=== PATIENT | female | born 1945 | race Two or more races ===

== ENCOUNTER 2017-12-20 11:33 | Emergency (ER) | payer OTHER ==
[~2017-12-20] VITALS: Ht 152.4 cm; Wt 88.9 kg
[2017-12-20] MEDS ORDERED: LIPITOR20 MG (12:50)
[2017-12-20] MEDS ORDERED: ATORVASTATIN CA20 MG (12:50)
[2017-12-20] MEDS ORDERED: DOXYCYCLINE HY100 MG (12:50)
[2017-12-20] MEDS ORDERED: AMLOD-VALSA-HC1 EAC3 (12:51)
== END 2017-12-20 14:50 | disposition home or self-care (01) ==
LOC: ER 11:33
DX: R42 Dizziness and giddiness (principal)

== ENCOUNTER 2018-12-16 08:34 | Outpatient (CLI) | payer OTHER ==
[~2018-12-16 08:34] MED LIST: AMLOD-VALSA-HC1 EAC3; ATORVASTATIN CA20 MG; DOXYCYCLINE HY100 MG; LIPITOR20 MG
== END 2018-12-16 08:44 | disposition home or self-care (01) ==
LOC: SONOGRAMA 08:34
DX: E04.2 Nontoxic multinodular goiter (principal)

== ENCOUNTER 2019-12-22 15:31 | Emergency (ER) | payer OTHER ==
[~2019-12-22] VITALS: Ht 152.4 cm; Wt 90.7 kg
== END 2019-12-22 21:03 | disposition home or self-care (01) ==
LOC: ER 15:31
DX: R10.13 Epigastric pain (principal); N39.0 Urinary tract infection, site not specified; B96.29 Other Escherichia coli [E. coli] as the cause of diseases classified elsewhere; R31.29 Other microscopic hematuria; T50.995A Adverse effect of other drugs, medicaments and biological substances, initial encounter; Y92.89 Other specified places as the place of occurrence of the external cause

== ENCOUNTER 2021-04-22 06:39 | Outpatient (CLI) | payer OTHER | END 2021-04-22 09:00 | disposition home or self-care (01) | LOC: TOM 06:39 → MRI 06:39 | PROVIDERS: ATTEND Physical Medicine & Rehabilitation | DX: M43.17 Spondylolisthesis, lumbosacral region (principal); M51.37 Other intervertebral disc degeneration, lumbosacral region; M54.51 Vertebrogenic low back pain | CPT/HCPCS: 72148 ==

== ENCOUNTER 2021-06-22 10:55 | Emergency (ER) | payer OTHER ==
[~2021-06-22] VITALS: Ht 152.4 cm; Wt 95.3 kg
[2021-06-22] MEDS ORDERED: ADMELOG100 UNIT/1 (11:11)
[2021-06-22] MEDS ORDERED: SEMGLEE100 UNIT/1 (11:11)
[2021-06-22] MEDS ORDERED: PANTOPRAZOLE SO40 MG PO (11:12)
[2021-06-22] MEDS ORDERED: MAXIMUM D3325 MCG PO (11:12)
[2021-06-22] MEDS ORDERED: HYDROCHLOROTHIA25 MG PO (11:12)
[2021-06-22] MEDS ORDERED: AMLODIPINE-VAL1 EACH PO (11:12)
[2021-06-22] MEDS ORDERED: DOXAZOSIN MESYLA4 MG PO (11:12)
[2021-06-22] MEDS ORDERED: MONDOXYNE NL100 MG PO (13:42)
== END 2021-06-22 14:10 | disposition home or self-care (01) ==
LOC: ER 10:55
DX: N61.1 Abscess of the breast and nipple (principal)

== ENCOUNTER 2021-06-30 10:52 | Outpatient (CLI) | payer OTHER ==
[~2021-06-30 10:52] MED LIST changes: +ADMELOG100 UNIT/1; +AMLODIPINE-VAL1 EACH PO; +DOXAZOSIN MESYLA4 MG PO; +HYDROCHLOROTHIA25 MG PO; +MAXIMUM D3325 MCG PO; +MONDOXYNE NL100 MG PO; +PANTOPRAZOLE SO40 MG PO; +SEMGLEE100 UNIT/1
== END 2021-06-30 10:54 | disposition home or self-care (01) ==
LOC: SONOGRAMA 10:52
PROVIDERS: ATTEND Surgery
DX: N60.12 Diffuse cystic mastopathy of left breast (principal); N64.59 Other signs and symptoms in breast; R92.8 Other abnormal and inconclusive findings on diagnostic imaging of breast

== ENCOUNTER 2021-10-31 15:10 | Outpatient (CLI) | payer OTHER | END 2021-10-31 16:10 | disposition home or self-care (01) | LOC: ASH CLINIC 15:10 | PROVIDERS: ATTEND Emergency Medicine | DX: U07.1 COVID-19 (principal) ==

== ENCOUNTER 2021-11-11 08:07 | Emergency (ER) | payer OTHER ==
[~2021-11-11] VITALS: Ht 152.4 cm; Wt 93.0 kg
== END 2021-11-11 10:51 | disposition home or self-care (01) ==
LOC: ER 08:07
DX: L02.01 Cutaneous abscess of face (principal); Z88.1 Allergy status to other antibiotic agents; Z91.018 Allergy to other foods

== ENCOUNTER 2022-03-14 09:26 | Emergency (ER) | payer OTHER ==
[~2022-03-14] VITALS: Ht 152.4 cm; Wt 59.0 kg
[2022-03-14] MEDS ORDERED: LEVOFLOXACIN500 MG PO (13:40)
== END 2022-03-14 13:58 | disposition home or self-care (01) ==
LOC: ER 09:26
DX: J06.9 Acute upper respiratory infection, unspecified (principal); R05.9 Cough, unspecified; R53.81 Other malaise; M54.89 Other dorsalgia; Z91.018 Allergy to other foods; Z88.8 Allergy status to other drugs, medicaments and biological substances; E11.9 Type 2 diabetes mellitus without complications; Z79.4 Long term (current) use of insulin; I10 Essential (primary) hypertension; E03.9 Hypothyroidism, unspecified; Z20.822 Contact with and (suspected) exposure to COVID-19

== ENCOUNTER 2022-11-09 09:06 | Outpatient (CLI) | payer OTHER ==
[~2022-11-09 09:06] MED LIST changes: +LEVOFLOXACIN500 MG PO
== END 2022-11-09 09:18 | disposition home or self-care (01) ==
LOC: MRI 09:06
PROVIDERS: ATTEND Orthopaedic Surgery
DX: M25.562 Pain in left knee (principal)
CPT/HCPCS: 73721

== ENCOUNTER 2023-01-01 09:17 | Emergency (ER) | payer OTHER ==
[~2023-01-01] VITALS: Ht 152.4 cm; Wt 95.3 kg
== END 2023-01-01 10:59 | disposition home or self-care (01) ==
LOC: ER 09:17
DX: J20.9 Acute bronchitis, unspecified (principal); B34.9 Viral infection, unspecified; Z88.8 Allergy status to other drugs, medicaments and biological substances

== ENCOUNTER 2023-05-25 10:21 | Emergency (ER) | payer OTHER ==
[~2023-05-25] VITALS: Ht 152.4 cm; Wt 95.3 kg
[2023-05-25 12:59] LABS: HEMATOCRIT 46.1 % (36.0-45.00); HEMOGLOBIN 15.2 g/dL (12.0-15.00); MEAN CELL VOLUME 81.1 fL (80.00-100.00); MEAN CORPUSCULAR HEMOGLOBIN 26.7 pg (27.00-32.0); MEAN CORPUSCULAR HGB CONC 32.9 g/dl (32.0-36.0); PLATELET COUNT 275 K/uL (150-450); RED BLOOD COUNT 5.69 M/uL (4.00-6.00); RED CELL DISTRIBUTION WIDTH 16.4 % (11.5-14.5)
[2023-05-25 13:31] LABS: CALCIUM 9.6 mg/dL (8.5-10.1); GFR 53.91; POTASSIUM 3.99 mEq/L (3.5-5.1)
[2023-05-25 13:33] LABS: URINE APPEARANCE Cloudy; URINE BILIRRUBIN Negative (NEGATIVE); URINE BLOOD Trace; URINE COLOR Yellow; URINE GLUCOSE Negative (NEGATIVE); URINE LEUKOCYTE Negative; URINE NITRATE Negative; URINE PROTEIN Negative (NEGATIVE)
[2023-05-25 13:36] LABS: URINE BACTERIA 268.3 uL (0.0-1933); URINE EPITHELIAL CELLS 7.4 uL (0.0-38.8); URINE RBC 96.1 uL (0.0-20.8); URINE WBC 13.2 uL (0.0-23.2)
== END 2023-05-25 18:22 | disposition home or self-care (01) ==
LOC: ER 10:21
PROVIDERS: Emergency Medicine
DX: R10.13 Epigastric pain (principal); K57.90 Diverticulosis of intestine, part unspecified, without perforation or abscess without bleeding; Z88.8 Allergy status to other drugs, medicaments and biological substances; E11.9 Type 2 diabetes mellitus without complications; Z79.4 Long term (current) use of insulin
CPT/HCPCS: 36415; 71045; 74177; 96365; 96366; 99284; J0744; J2405; J3490; J7030; Q9965

== ENCOUNTER 2023-09-06 07:40 | Outpatient (CLI) | payer OTHER | END 2023-09-06 07:54 | disposition home or self-care (01) | LOC: MRI 07:40 | PROVIDERS: ATTEND Family Medicine | DX: M54.50 Low back pain, unspecified (principal) | CPT/HCPCS: 72148 ==

== ENCOUNTER 2024-03-03 13:35 | Emergency (ER) | payer OTHER ==
[~2024-03-03] VITALS: Ht 152.4 cm; Wt 97.1 kg
[~2024-03-03 13:35] MED LIST changes: +SYNTHROID75 MCG PO
[2024-03-03] MEDS ORDERED: KETOROLAC TROMETHAMINE 60 MG VIAL IM ONE ×2 (17:55→18:00)
[2024-03-03 18:11] LABS: URINE APPEARANCE Clear; URINE BILIRRUBIN Negative (NEGATIVE); URINE BLOOD Negative; URINE COLOR Yellow; URINE GLUCOSE Negative (NEGATIVE); URINE KETONE Negative (NEGATIVE); URINE LEUKOCYTE Negative; URINE NITRATE Negative; URINE PROTEIN Negative (NEGATIVE); URINE UROBILINOGEN 0.2 E.U./dl
[2024-03-03 18:12] LABS: HEMATOCRIT 48.3 % (36.0-45.00); HEMOGLOBIN 16.1 g/dL (12.0-15.00); MEAN CELL VOLUME 79.6 fL (80.00-100.00); MEAN CORPUSCULAR HEMOGLOBIN 26.6 pg (27.00-32.0); MEAN CORPUSCULAR HGB CONC 33.4 g/dl (32.0-36.0); PLATELET COUNT 296 K/uL (150-450); RED BLOOD COUNT 6.07 M/uL (4.00-6.00); RED CELL DISTRIBUTION WIDTH 17.7 % (11.5-14.5); URINE EPITHELIAL CELLS 4.1 uL (0.0-38.8); URINE RBC 42.7 uL (0.0-20.8); URINE WBC 3.5 uL (0.0-23.2)
[2024-03-03] MEDS ORDERED: ORPHENADRINE CITRATE 30 MG/ML AMPUL ONE (20:10)
[2024-03-03] MEDS ORDERED: BACLOFEN10 MG PO (20:12)
[2024-03-03] MEDS ORDERED: IBU600 MG PO (20:12)
[2024-03-03] MEDS ORDERED: ORPHENADRINE CITRATE 30 MG/ML AMPUL IM ONE (20:15)
== END 2024-03-03 21:00 | disposition home or self-care (01) ==
LOC: ER 13:37
PROVIDERS: Preventive Medicine Public Health & General Preventive Medicine
DX: M54.50 Low back pain, unspecified (principal); M51.36 Other intervertebral disc degeneration, lumbar region; E11.9 Type 2 diabetes mellitus without complications; Z79.4 Long term (current) use of insulin; I10 Essential (primary) hypertension; E03.9 Hypothyroidism, unspecified; Z88.8 Allergy status to other drugs, medicaments and biological substances
CPT/HCPCS: 36415; 72100; 96372; 99284; J1885; J2360

== ENCOUNTER 2024-03-05 07:55 | Emergency (ER) | payer OTHER ==
[~2024-03-05] VITALS: Ht 152.4 cm; Wt 97.1 kg
[~2024-03-05 07:55] MED LIST changes: +BACLOFEN10 MG PO; +IBU600 MG PO
[2024-03-05] MEDS ORDERED: HUMALOG100 UNIT/2 SQ (08:06)
[2024-03-05] MEDS ORDERED: LANTUS SOL100 UNIT/1 SQ (08:06)
[2024-03-05] MEDS ORDERED: DEXAMETHASONE SODIUM PHOSPHATE 4 MG/ML VIAL IM STA (08:35)
[2024-03-05] MEDS ORDERED: ORPHENADRINE CITRATE 30 MG/ML AMPUL IM STA (08:36)
[2024-03-05] MEDS ORDERED: DEXAMETHASONE SODIUM PHOSPHATE 4 MG/ML VIAL ONE (08:46)
[2024-03-05] MEDS ORDERED: ORPHENADRINE CITRATE 30 MG/ML AMPUL ONE (08:46)
== END 2024-03-05 09:11 | disposition home or self-care (01) ==
LOC: ER 07:56
DX: M54.9 Dorsalgia, unspecified (principal); Z88.5 Allergy status to narcotic agent; Z88.6 Allergy status to analgesic agent
CPT/HCPCS: 96372; 99282; J1100; J3490

== ENCOUNTER 2024-03-07 10:12 | Outpatient (CLI) | payer OTHER ==
[~2024-03-07 10:12] MED LIST changes: +HUMALOG100 UNIT/2 SQ; +LANTUS SOL100 UNIT/1 SQ
== END 2024-03-07 10:18 | disposition home or self-care (01) ==
LOC: MRI 10:12
PROVIDERS: ATTEND Family Medicine
DX: M54.40 Lumbago with sciatica, unspecified side (principal)
CPT/HCPCS: 72148

== ENCOUNTER 2024-04-09 07:45 | Outpatient (CLI) | payer OTHER | END 2024-04-09 07:55 | disposition home or self-care (01) | LOC: MRI 07:45 | PROVIDERS: ATTEND Family Medicine | DX: S32.000A Wedge compression fracture of unspecified lumbar vertebra, initial encounter for closed fracture (principal); M54.41 Lumbago with sciatica, right side | CPT/HCPCS: 72148 ==

== ENCOUNTER 2024-04-29 18:16 | Emergency (ER) | payer OTHER ==
[~2024-04-29] VITALS: Ht 152.4 cm; Wt 97.1 kg
[2024-04-29] MEDS ORDERED: AYR SALINE50 ML NASAL (23:30)
[2024-04-29] MEDS ORDERED: NASONEX 24HR AL17 ML NASAL (23:30)
== END 2024-04-30 00:36 | disposition home or self-care (01) ==
LOC: ER 18:18
DX: R06.02 Shortness of breath (principal); Z88.8 Allergy status to other drugs, medicaments and biological substances

== ENCOUNTER 2024-05-28 16:24 | Emergency (ER) | payer OTHER ==
[~2024-05-28] VITALS: Ht 152.4 cm; Wt 97.1 kg
[~2024-05-28 16:24] MED LIST changes: +AYR SALINE50 ML NASAL; +NASONEX 24HR AL17 ML NASAL
== END 2024-05-28 17:49 | disposition home or self-care (01) ==
LOC: ER 16:26
DX: R53.81 Other malaise (principal); R09.81 Nasal congestion; Z88.5 Allergy status to narcotic agent

== ENCOUNTER 2024-07-19 18:19 | Emergency (ER) | payer OTHER ==
[~2024-07-19] VITALS: Ht 152.4 cm; Wt 97.1 kg
[2024-07-19 19:33] LABS: HEMATOCRIT 47.5 % (36.0-45.00); HEMOGLOBIN 15.4 g/dL (12.0-15.00); MEAN CELL VOLUME 84.5 fL (80.00-100.00); MEAN CORPUSCULAR HEMOGLOBIN 27.4 pg (27.00-32.0); MEAN CORPUSCULAR HGB CONC 32.5 g/dl (32.0-36.0); PLATELET COUNT 279 K/uL (150-450); RED BLOOD COUNT 5.63 M/uL (4.00-6.00); RED CELL DISTRIBUTION WIDTH 17.9 % (11.5-14.5)
[2024-07-19 20:12] LABS: ALBUMIN 3.8 gm/dL (3.4-5.0); BILIRUBIN TOTAL 0.64 mg/dL (0.3-1.2); CALCIUM 9.9 mg/dL (8.5-10.1); CREATININE SERUM 1.24 mg/dL (0.55-1.02); GFR 41.94; POTASSIUM 3.99 mEq/L (3.5-5.1); TOTAL PROTEIN 7.8 gm/dL (6.4-8.2)
[2024-07-19 22:13] LABS: ABG PH 7.486 (7.35-7.45); ABG PO2 79.4 mmHg (80-100); ABG pCO2 30.2 mmHg (35-45); BASE EXCESS 0 mmol/l; BICARBONATE 22.3 mmol/l (23-25); SaO2 96.6 %; Tco2 23.3 mmol/l
[2024-07-19 22:14] LABS: allen test SATISFACTORY; o2 21 %; puncture site RADIAL LEFT
== END 2024-07-20 | disposition home or self-care (01) ==
LOC: ER 18:21
PROVIDERS: Preventive Medicine Public Health & General Preventive Medicine
DX: R06.02 Shortness of breath (principal); R53.83 Other fatigue; I10 Essential (primary) hypertension; E11.9 Type 2 diabetes mellitus without complications; Z79.4 Long term (current) use of insulin; E03.9 Hypothyroidism, unspecified; Z88.8 Allergy status to other drugs, medicaments and biological substances